=== PATIENT | male | born 1995 | race African-American/Black ===

== ENCOUNTER 2021-02-17 09:20 | Emergency (ER) | payer OTHER, SELFPAY ==
[2021-02-17 09:54] VITALS: BP 102/68; PULSE 63; RESP 18; TEMP 36.8; O2SAT 100; BMI 25.7
--- NOTE | 2021-02-17 09:59 | DI.RAD.S_ITS ---
PROCEDURE: XR ANKLE RT MIN 3V INDICATIONS: Bilat heel/ankle pain TECHNIQUE: 3 views of the ankle were acquired. COMPARISON: None. FINDINGS: Bones: No fractures or dislocations. Ankle mortise is normally aligned. No suspicious bony lesions. Soft tissues: No tibiotalar joint effusion. Achilles tendon appears normal. IMPRESSION: No gross acute ankle fracture or dislocation. Ankle mortise is congruent. Dictated by: Jesu Parra M.D. on 02/17/2021 at 11:05 Approved by: Jesu Parra M.D. on 02/17/2021 at 11:06
--- NOTE | 2021-02-17 09:59 | DI.RAD.S_ITS ---
PROCEDURE: XR ANKLE LT MIN 3V INDICATIONS: Bilat heel/ankle pain TECHNIQUE: 3 views of the ankle were acquired. COMPARISON: None. FINDINGS: Bones: No fracture. Diffuse hindfoot degenerative spurring, chronic. There is suggestion of hindfoot valgus although technically indeterminate and could be projectional artifact. Weight-bearing views would be more specific. Soft tissues: No tibiotalar joint effusion. Achilles tendon appears normal. There is possible plantar hindfoot soft tissue swelling. IMPRESSION: Plantar hindfoot soft tissue swelling. Suggestion of hindfoot valgus although please see comment above. If the patient's pain or other symptoms persist, consider further evaluation with MRI Dictated by: Dilshad So M.D. on 02/17/2021 at 11:17 Approved by: Dilshad So M.D. on 02/17/2021 at 11:21
--- NOTE | 2021-02-17 10:00 | DI.RAD.S_ITS ---
PROCEDURE: XR CALCANEOUS LT MIN 2V INDICATIONS: bilat foot/ankle injury TECHNIQUE: Two views of the calcaneus were acquired. COMPARISON: None. FINDINGS: Bones: No fractures or dislocations. No suspicious bony lesions. Soft tissues: No suspicious calcifications. Achilles tendon appears normal. IMPRESSION: No gross acute left calcaneus fracture or dislocation. Plantar fascia and visualized portion of Achilles tendon is grossly intact. Dictated by: Jesu Parra M.D. on 02/17/2021 at 11:05 Approved by: Jesu Parra M.D. on 02/17/2021 at 11:05
--- NOTE | 2021-02-17 10:00 | DI.RAD.S_ITS ---
PROCEDURE: XR CALCANEOUS RT MIN 2V INDICATIONS: bilat foot/ankle injury TECHNIQUE: Two views of the calcaneus were acquired. COMPARISON: None. FINDINGS: Bones: No fractures or dislocations. No suspicious bony lesions. Soft tissues: No suspicious calcifications. Achilles tendon appears normal. IMPRESSION: No gross acute calcaneal fracture is seen. Plantar fascia and visualized portion of Achilles tendon are grossly intact. Dictated by: Jesu Parra M.D. on 02/17/2021 at 10:50 Approved by: Jesu Parra M.D. on 02/17/2021 at 11:05
--- NOTE | 2021-02-17 10:16 | ED.LOWEXIN ---
HPI - Extremity Injury (Lower) General Chief Complaint: Extremity Injury, Lower Stated Complaint: BI HEEL/ANKLE/CALF PAIN Time Seen by Provider: 02/17/21 10:11 Source: patient Mode of arrival: Ambulatory Limitations: no limitations History of Present Illness HPI Narrative: Patient is a 25-year-old male who has had bilateral heel and Achilles tendon pain ongoing for a year. He played basketball yesterday is having increased pain today. He feels pain shooting up from his heel along his Achilles tendon. He has not heard any popping. He says pain is significantly worse in the mornings. He denies any leg arch pain in his foot. He has not fallen. Related Data Allergies Allergy/AdvReac Type Severity Reaction Status Date / Time No Known Drug Allergies Allergy Verified 02/17/21 09:54 Review of Systems Review of Systems Narrative: GENERAL: Denies chills,fever HEENT: Denies throat pain RESPIRATORY: Denies dyspnea, cough, wheezing CARDIOVASCULAR: Denies chest pain, palpitations GASTROINTESTINAL: Denies nausea, vomiting MUSCULOSKELETAL: See HPI SKIN: No rash, no laceration, no pruritus NEUROLOGIC: Denies weakness, dizziness, headache, numbness 8 point review of systems is negative except for those stated above and HPI Patient History Social History Smoking Status: Never smoker Smoking Status: Never smoker Substance Use Type: does not use Exam Initial Vital Signs Initial Vital Signs: Vital Signs Temperature 98.2 F 02/17/21 09:54 Pulse Rate 63 02/17/21 09:54 Respiratory Rate 18 02/17/21 09:54 Blood Pressure 102/68 02/17/21 09:54 Pulse Oximetry 100 02/17/21 09:54 GENERAL: Alert well-appearing 25-year-old male CARDIOVASCULAR: peripheral pulses in tact, cap refill <2 sec RESPIRATORY: No respiratory distress, speaks in full sentences without difficulty EXTREMITIES: Normal range of motion, no clubbing or edema. Neurovascularly intact. Bilateral feet are reassuring. He actually does have quite flat foot in my opinion. No significant swelling or erythema. He is tender in his bilateral Achilles but his Achilles are intact. Ankle and foot within normal limits. Distal pedal pulse intact. NEUROLOGICAL: Cranial nerves II through XII grossly intact. Normal gait and speech. SKIN: Warm, dry, no petechiae, no rashes or lesions. Course Orders Ordered: ED Orders 02/17/21 09:59 XR ankle LT min 3V Stat XR ankle RT min 3V Stat 02/17/21 10:00 XR calcaneus LT min 2V Stat XR calcaneus RT min 2V Stat Vital Signs Vital signs: Vital Signs - 8 hr 02/17/21 09:54 Temperature 98.2 F Pulse Rate 63 Respiratory Rate 18 Blood Pressure 102/68 Pulse Oximetry 100 MDM - Extremity Injury (Lower) Imaging Data Extremity x-ray #1: Radiologist's Impression: PROCEDURE: XR ANKLE RT MIN 3V INDICATIONS: Bilat heel/ankle pain TECHNIQUE: 3 views of the ankle were acquired. COMPARISON: None. FINDINGS: Bones: No fractures or dislocations. Ankle mortise is normally aligned. No suspicious bony lesions. Soft tissues: No tibiotalar joint effusion. Achilles tendon appears normal. IMPRESSION: No gross acute ankle fracture or dislocation. Ankle mortise is congruent. Dictated by: Jesu Parra M.D. on 02/17/2021 at 11:05 Approved by: Jesu Parra M.D. on 02/17/2021 at 11:06 Extremity x-ray #2: Radiologist's Impression: PROCEDURE: XR ANKLE LT MIN 3V INDICATIONS: Bilat heel/ankle pain TECHNIQUE: 3 views of the ankle were acquired. COMPARISON: None. FINDINGS: Bones: No fracture. Diffuse hindfoot degenerative spurring, chronic. There is suggestion of hindfoot valgus although technically indeterminate and could be projectional artifact. Weight-bearing views would be more specific. Soft tissues: No tibiotalar joint effusion. Achilles tendon appears normal. There is possible plantar hindfoot soft tissue swelling. IMPRESSION: Plantar hindfoot soft tissue swelling. Suggestion of hindfoot valgus although please see comment above. If the patient's pain or other symptoms persist, consider further evaluation with MRI Dictated by: Dilshad So M.D. on 02/17/2021 at 11:17 Extremity x-ray #3: Radiologist's Impression: PROCEDURE: XR CALCANEOUS LT MIN 2V INDICATIONS: bilat foot/ankle injury TECHNIQUE: Two views of the calcaneus were acquired. COMPARISON: None. FINDINGS: Bones: No fractures or dislocations. No suspicious bony lesions. Soft tissues: No suspicious calcifications. Achilles tendon appears normal. IMPRESSION: No gross acute left calcaneus fracture or dislocation. Plantar fascia and visualized portion of Achilles tendon is grossly intact. Dictated by: Jesu Parra M.D. on 02/17/2021 at 11:05 Approved by: Jesu Parra M.D. on 02/17/2021 at 11:05 EX #4: Radiologist's Impression: PROCEDURE: XR CALCANEOUS RT MIN 2V INDICATIONS: bilat foot/ankle injury TECHNIQUE: Two views of the calcaneus were acquired. COMPARISON: None. FINDINGS: Bones: No fractures or dislocations. No suspicious bony lesions. Soft tissues: No suspicious calcifications. Achilles tendon appears normal. IMPRESSION: No gross acute calcaneal fracture is seen. Plantar fascia and visualized portion of Achilles tendon are grossly intact. Dictated by: Jesu Parra M.D. on 02/17/2021 at 10:50 Approved by: Jesu Parra M.D. on 02/17/2021 at 11:05 MDM Narrative Medical decision making narrative: Patient is quite tender along his Achilles tendons. But they are intact. Likely tendonitis. Recommend ibuprofen. Also spoke to him about avoiding fluoroquinolones if he needs any antibiotics. He is given crutches as well. Discharge Plan Departure Patient Disposition: Home Clinical Impression: Tendinitis Instructions: DI for Tendinitis Activity Restrictions/Additional Instructions: *You have been diagnosed with bilateral Achilles tendinitis *What to do: At this time x-rays are negative. You may require outpatient MRI or other testing. Recommend avoiding activities that make it hurt. Do not take fluoroquinolones such as ciprofloxacin or levofloxacin *Continue to take medications as directed Motrin 800 mg every 8 hours needed for [id number] pain *Follow up with your primary care provider in 2-3 days *Return to ER if you should have increasing pain, inability to walk or any new, worsening or concerning symptoms Referrals: [facility] [Provider Group] [facility] [Provider Group] Stand Alone Forms: Work Release Note
[2021-02-17 11:25] VITALS: BP 106/56; PULSE 63
== END 2021-02-17 11:35 | disposition home or self-care (01) ==
PROVIDERS: Emergency Provider Emergency Medicine
DX: M76.62 Achilles tendinitis, left leg (principal); Y93.67 Activity, basketball
CPT/HCPCS: 73610; 73650; 99282; 99284

== ENCOUNTER 2021-10-12 09:48 | Emergency (ER) | payer OTHER, SELFPAY ==
[2021-10-12] VITALS (10 sets, daily range): BP systolic 117–137; BP diastolic 62–76; PULSE 65–74; RESP 13–22; TEMP 36.6; O2SAT 92–100; BMI 31.2
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
--- NOTE | 2021-10-12 13:32 | ED_ITS ---
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 independently by the APC.
[2021-10-12 13:42] LABS: Add Manual Diff / Slide Review NO; Basophils Absolute Auto 100 /uL (0-100); Basophils Percent Auto 1.3 % (0-2); Eosinophils Absolute Auto 200 /uL (0-450); Eosinophils Percent Auto 3.6 % (2-4); Hematocrit 40.7 % (41-53); Hemoglobin 13.9 g/dL (13.5-17.5); Lymphocytes Absolute Auto 1900 /uL (1100-4500); Lymphocytes Percent Auto 31.2 % (25-40); Mean Corpuscular HGB Conc 34.1 % (30-36); Mean Corpuscular Hemoglobin 29.2 PG (26-34); Mean Corpuscular Volume 85.4 fL (80-100); Monocytes Absolute Auto 500 /uL (0-900); Monocytes Percent Auto 8.1 % (3-14); Neutrophils Absolute Auto 3300 /uL (1500-7000); Neutrophils Percent Auto 55.8 % (50-75); Platelet Count 269 X10^3/uL (150-400); Red Blood Cell Count 4.76 X10^6/uL (4.5-5.9); Red Cell Distribution Width 13.3 % (11.6-14.8); White Blood Cell Count 5.9 X10^3/uL (4.5-11.0)
[2021-10-12 13:52] LABS: Alanine Aminotransferase 18 IU/L (<50); Albumin 4.3 g/dL (3.5-5.0); Albumin Globulin Ratio 1.4 (1.0-2.8); Alkaline Phosphatase 49 U/L (38-126); Aspartate Aminotransferase 34 IU/L (17-59); Bilirubin Total 0.5 mg/dL (0.2-1.3); Blood Urea Nitrogen 14 mg/dL (9-20); Calcium 9.5 mg/dL (8.4-10.2); Carbon Dioxide 33 mmol/L (22-32); Chloride 103 mmol/L (98-107); Creatine Kinase 319 U/L (55-170); Estimated Glomerular Filt Rate > 60.0 mL/min (>60); Glucose 71 mg/dL (70-100); HEMOLYSIS < 15 (0-50); Sodium 140 mmol/L (137-145); Total Protein 7.3 g/dL (6.3-8.2)
[2021-10-12 14:02] LABS: Troponin I < 0.012 ng/mL (0.01-0.034)
[2021-10-12] MEDS: SODIUM CHLORIDE 0.9% 1,000 ML 1000 ML IV (14:03)
[2021-10-12 14:07] LABS: CKMB % Relative Index 0.5 % (1.5-5.0)
[2021-10-12 14:21] LABS: Thyroid Stimulating Hormone 1.64 uIU/mL (0.47-4.68)
[2021-10-12 14:32] LABS: Appearance Urine UA CLOUDY; Bilirubin Urine UA NEGATIVE (NEGATIVE); Color Urine UA YELLOW; Glucose Urine UA NEGATIVE (Negative); Ketones Urine UA NEGATIVE (NEGATIVE); Leukocyte Esterase Urine UA NEGATIVE (NEGATIVE); Nitrite Urine UA NEGATIVE (Negative); Occult Blood Urine UA NEGATIVE (Negative); Protein Urine UA NEGATIVE (Negative); Urobilinogen Urine UA 0.2 E.U./dL (0.2); pH Urine UA 7.5 (4.5-8.0)
--- NOTE | 2021-10-12 14:42 | DI.US.S_ITS ---
PROCEDURE: US SCROTUM INDICATIONS: RIGHT TESTICULAR LUMP TECHNIQUE: Real-time scanning was performed of the scrotum and testicles, with image documentation. Color and pulse Doppler interrogation was performed of both testicles. COMPARISON: None. FINDINGS: Right: Testicle is normal in size at 2.1 x 3.3 x 4.8 cm, and homogenous in echotexture. Epididymis is normal in overall size and morphology. Mild right varicocele. No hydrocele. Overlying scrotal skin is normal in thickness. Left: Status post left orchiectomy. Doppler: Color and pulse Doppler demonstrate normal and symmetric arterial flow in both testicles. IMPRESSION: Mild right varicocele. No testicular mass. Dictated by: Reinier Harris M.D. on 10/12/2021 at 15:00 Approved by: Reinier Harris M.D. on 10/12/2021 at 15:01
[2021-10-12 14:52] LABS: UR Morphine/Opiate cutoff 300 Negative (Negative); Ur Creatinine Normal (Normal); Ur Specific Gravity Normal (Normal); Urine Amphetamines Negative (Negative); Urine Barbiturates Negative (Negative); Urine Benzodiazepines Negative (Negative); Urine Cocaine Negative (Negative); Urine MDMA Negative (Negative); Urine Methadone Negative (Negative); Urine Methamphetamines Negative (Negative); Urine Oxycodone Negative (Negative); Urine Phencyclidine Negative (Negative); Urine Tetrahydrocannabinol Negative (Negative); Urine Tricyclic Antidepressant Negative (Negative); Urine pH Normal (Normal)
[2021-10-12 15:20] LABS: Amorphous Sediment Urine 2+; Bacteria Urine None Seen; Culture Indicated Urine Cult Not Indicated; RBC Urine None Seen (0-5/HPF); WBC Urine None Seen (0-5/HPF)
== END 2021-10-12 15:44 | disposition home or self-care (01) ==
PROVIDERS: Emergency Provider Physician Assistant
DX: R42 Dizziness and giddiness (principal); E86.0 Dehydration; I86.1 Scrotal varices
CPT/HCPCS: 70450; 72125; 76870; 80053; 80305; 81001; 82550; 82553; 84443; 84484; 85025; 93005; 99284